=== PATIENT | male | born 1955 | race African-American/Black ===

== ENCOUNTER 2017-01-06 16:23 | Emergency (ER) | payer MEDICARE, MEDICAID ==
[~2017-01-06] VITALS: Ht 177.8 cm; Wt 106.6 kg
[~2017-01-06 16:23] MED LIST: ALBU8.5H6 IH; CYCL10TA2 PO; LISI1TAB5 PO; OXYC1TAB9 PO
[2017-01-06 16:58] VITALS: BP 126/72
[2017-01-06] MEDS ORDERED: CYCL10TA2 PO (17:18)
[2017-01-06] MEDS ORDERED: PRED50TA PO (17:18)
[2017-01-06] MEDS ORDERED: PROAIR RESPICL90 MCG IH (17:18)
[2017-01-06] MEDS ORDERED: HYDR115S2 PO (17:18)
--- NOTE | 2017-01-06 17:18 | PHYS DOC ---
Past Medical History Past Medical History: Asthma, Hypertension Additional Past Medical Histor: herniated disc in back, Past Surgical History: Other Additional Past Surgical Histo: L shoulder, R hand, Rshoulder, R knee frx repairs Alcohol Use: None Drug Use: None Adult General Chief Complaint Chief Complaint: BACK PAIN - NO INJURY [facility] HPI Patient is a 61 year old male with history of hypertension and asthma who presents today with mild bilateral low back pain that began 4 days ago after he twisted his back carrying a 7 month old in a car seat. Patient denies any pain radiating to bilateral lower extremities. Denies any loss of bowel bladder function. Denies any numbness or tingling to bilateral lower extremities. He states he has tried [id number] medications with no relief. He is also complaining of a productive cough for 4 days. Denies any fever. He states he is currently a smoker. Review of Systems Review of Systems Constitutional: Denies fever or chills [] Eyes: Denies change in visual acuity, redness, or eye pain [] HENT: Denies nasal congestion or sore throat [] Respiratory: Productive cough Cardiovascular: No additional information not addressed in HPI [] GI: Denies abdominal pain, nausea, vomiting, bloody stools or diarrhea [] : Denies dysuria or hematuria [] Musculoskeletal: Bilateral low back pain Integument: Denies rash or skin lesions [] Neurologic: Denies headache, focal weakness or sensory changes [] Endocrine: Denies polyuria or polydipsia [] Allergies Allergies Allergies Coded Allergies Type Severity Reaction Last Updated Verified Iodinated Contrast Media - IV Dye Allergy Intermediate Hives 05/31/15 Yes Physical Exam Physical Exam Constitutional: Well developed, well nourished, no acute distress, non-toxic appearance. [] HENT: Normocephalic, atraumatic, bilateral external ears normal, oropharynx moist, no oral exudates, nose normal. [] Eyes: PERRLA, EOMI, conjunctiva normal, no discharge. [] Neck: Normal range of motion, no tenderness, supple, no stridor. [] Cardiovascular:Heart rate regular rhythm, no murmur [] Lungs & Thorax: Bilateral breath sounds clear to auscultation [] Abdomen: Bowel sounds normal, soft, no tenderness, no masses, no pulsatile masses. [] Skin: Warm, dry, no erythema, no rash. [] Back: Diffuse paraspinal muscle tenderness to the lumbar region, no midline tenderness, no CVA tenderness. [] Extremities: No tenderness, no cyanosis, no clubbing, ROM intact, no edema. [] Neurologic: Alert and oriented X 3, normal motor function, normal sensory function, no focal deficits noted. [] Psychologic: Affect normal, judgement normal, mood normal. [] Current Patient Data Vital Signs Vital Signs Date Time Temp Pulse Resp B/P Pulse Ox O2 Delivery O2 Flow Rate FiO2 01/06/17 16:58 98.8 95 22 126/72 97 Room Air 98.8 EKG EKG [] Radiology/Procedures Radiology/Procedures [] Course & Med Decision Making Course & Med Decision Making Pertinent Labs and Imaging studies reviewed. (See chart for details) Patient is in the ED with acute bronchitis and lumbar strain. We talked about the need of smoking cessation. Discharged with prednisone, albuterol inhaler, muscle relaxers, and cough medicine. Follow-up with PCP in one week. Dragon Disclaimer Dragon Disclaimer This electronic medical record was generated, in whole or in part, using a voice recognition dictation system. Departure Departure Impression: Primary Impression: Acute bronchitis Additional Impressions: Lumbosacral strain Smoking addiction Disposition: 01 HOME, SELF-CARE Condition: STABLE Referrals: JULIET TIMMONS MD (PCP) Follow-up with your doctor in one week Patient Instructions: Acute Bronchitis, Lumbosacral Strain, Smoking Cessation Additional Instructions: You were seen with symptoms consistent with viral bronchitis. You also have lumbar strain. Please consider smoking cessation. Avoid lifting anything greater than a gallon of milk for week. Apply heat or ice to the affected part of your back. Take the prescribed medicines as ordered. Come back to the ED if symptoms worsen. Scripts Hydrocodone/Chlorphen Polis (Tussionex Pennkinetic Susp)480 Ml Judit.er.12h5 Ml PO BID #50 ML Prov:GILALILIAN CARDIAC MONITOR 01/06/17 Albuterol Sulfate (Proair Respiclick)90 Mcg Aer.pow.ba1 Puff IH PRN Q6HRS PRN SHORTNESS OF BREATH #1 INHALER Prov:MUTUNGALILIAN CARDIAC MONITOR 01/06/17 Prednisone 50 Mg Tablet1 Tab PO DAILY #5 TAB Prov:MUTUNGA,LILIAN CARDIAC MONITOR 01/06/17 Cyclobenzaprine Hcl 10 Mg Tablet1 Tab PO TID #30 TAB Prov:LILIAN DYER APRN 01/06/17 Problem Qualifiers Primary Impression: Acute bronchitis Bronchitis organism: unspecified organism Qualified Code: J20.9 - Acute bronchitis, unspecified Additional Impressions: Lumbosacral strain Encounter type: initial encounter Qualified Code: S39.012A - Strain of muscle, fascia and tendon of lower back, initial encounter LILIAN DYER APRN Jan 06, 2017 17:18
== END 2017-01-06 17:21 | disposition home or self-care (01) ==
LOC: ER 16:23
DX: S39.012A Strain of muscle, fascia and tendon of lower back, initial encounter (principal); J20.9 Acute bronchitis, unspecified; J45.909 Unspecified asthma, uncomplicated; I10 Essential (primary) hypertension; M19.90 Unspecified osteoarthritis, unspecified site; Z91.041 Radiographic dye allergy status; F17.200 Nicotine dependence, unspecified, uncomplicated; X50.0XXA Overexertion from strenuous movement or load, initial encounter; Y93.89 Activity, other specified; Y99.8 Other external cause status; Y92.89 Other specified places as the place of occurrence of the external cause
CPT/HCPCS: 99283

== ENCOUNTER 2017-05-11 17:48 | Emergency (ER) | payer MEDICARE, MEDICAID ==
[~2017-05-11] VITALS: Ht 177.8 cm; Wt 102.1 kg
[~2017-05-11 17:48] MED LIST changes: +HYDR115S2 PO; +PRED50TA PO; +PROAIR RESPICL90 MCG IH
[2017-05-11 18:06] VITALS: BP 153/81
[2017-05-11] MEDS ORDERED: AMOX500C PO (18:22)
--- NOTE | 2017-05-11 18:22 | PHYS DOC ---
Past Medical History Past Medical History: Asthma, COPD, Hypertension Additional Past Medical Histor: herniated disc in back, Past Surgical History: Other Additional Past Surgical Histo: L shoulder, R hand, Rshoulder, R knee fx repairs Alcohol Use: None Drug Use: None Adult General Chief Complaint Chief Complaint: DENTAL PROBLEM HPI HPI Patient is a 61 year old presents to the emergency department stating that he was eating pizza last night when he broke his front 2 lower teeth. Patient states that he goes to the dental school in which she will probably not be able to get in to see them until after Saturday. Patient states he believes that he probably swallowed his teeth that broke off. He states that he is having increased pain. Denies any fever, chills or any nausea vomiting. Review of Systems Review of Systems Constitutional: Denies fever or chills [] Eyes: Denies change in visual acuity, redness, or eye pain [] HENT: Denies nasal congestion or sore throat. Complaint of frontal lower dental pain and discomfort, fractured teeth [] Respiratory: Denies cough or shortness of breath [] Cardiovascular: No additional information not addressed in HPI [] GI: Denies abdominal pain, nausea, vomiting, bloody stools or diarrhea [] : Denies dysuria or hematuria [] Musculoskeletal: Denies back pain or joint pain [] Integument: Denies rash or skin lesions [] Neurologic: Denies headache, focal weakness or sensory changes [] Endocrine: Denies polyuria or polydipsia [] Allergies Allergies Allergies Coded Allergies Type Severity Reaction Last Updated Verified Iodinated Contrast Media - IV Dye Allergy Intermediate Hives 05/31/15 Yes Physical Exam Physical Exam Constitutional: Well developed, well nourished, no acute distress, non-toxic appearance. [] HENT: Normocephalic, atraumatic, bilateral external ears normal, oropharynx moist, no oral exudates, nose normal. Patient with frontal lower teeth to that appear to be broken off and darkened at the gumline. The gumline appears to be red swollen and tender. Eyes: PERRLA, EOMI, conjunctiva normal, no discharge. [] Neck: Normal range of motion, no tenderness, supple, no stridor. [] Cardiovascular:Heart rate regular rhythm, no murmur [] Lungs & Thorax: Bilateral breath sounds clear to auscultation [] Skin: Warm, dry, no erythema, no rash. [] Back: No tenderness Extremities: No tenderness, no cyanosis, no clubbing, ROM intact, no edema. [] Neurologic: Alert and oriented X 3, normal motor function, normal sensory function, no focal deficits noted. [] Psychologic: Affect normal, judgement normal, mood normal. [] Current Patient Data Vital Signs Vital Signs Date Time Temp Pulse Resp B/P (MAP) Pulse Ox O2 Delivery O2 Flow Rate FiO2 05/11/17 18:06 99.1 84 18 97 Room Air 99.1 EKG EKG [] Radiology/Procedures Radiology/Procedures [] Course & Med Decision Making Course & Med Decision Making Pertinent Labs and Imaging studies reviewed. (See chart for details) Patient was recommended to use dental wax [id number] to place over the teeth. Patient currently takes oxycodone at home for pain and discomfort he can continue this as well. He'll be placed on amoxicillin 1 tablet 4 times a day for the next 10 days. Recommended that he call and get in with the dental school for further evaluation of his dental pain and discomfort. Patient was provided with signs and symptoms to return back to the emergency department. Patient agrees with discharge instructions, treatment regimens and follow-up recommendations. All questions and concerns was answered at patient's bedside. [] Dragon Disclaimer Dragon Disclaimer This electronic medical record was generated, in whole or in part, using a voice recognition dictation system. Departure Departure Impression: Primary Impression: Pain, dental Additional Impression: Dental abscess Disposition: 01 HOME, SELF-CARE Condition: STABLE Referrals: JULIET TIMMONS MD (PCP) Patient Instructions: Dental Abscess Additional Instructions: Activity as tolerated. Ibuprofen for pain and discomfort where he may also use oxycodone you have at home. Warm salt water mouth rinses 4 times a day. Antibiotic as prescribed. You may purchase dental wax [id number] to place over the teeth area to help with the pain and discomfort. Follow-up with your dentist within the next week. Return back to emergency prior for signs and symptoms of become worse. Scripts Amoxicillin (AMOXICILLIN) 500 Mg Capsule 1 CAP PO QID, #40 CAP Prov: DAVE CONTRERAS APRN 05/11/17 Problem Qualifiers DAVE CONTRERAS APRN May 11, 2017 18:22
== END 2017-05-11 18:25 | disposition home or self-care (01) ==
LOC: ER 17:48
DX: K04.7 Periapical abscess without sinus (principal); I10 Essential (primary) hypertension; J44.9 Chronic obstructive pulmonary disease, unspecified
CPT/HCPCS: 99283

== ENCOUNTER 2018-06-13 09:09 | Inpatient (IN) | payer OTHER ==
[~2018-06-13] VITALS: Ht 177.8 cm; Wt 98.2 kg
[~2018-06-13 09:09] MED LIST changes: +AMOX500C PO; +OXYC-411 PO; -OXYC1TAB9 PO; +cloNIDine TTS-1 1 PATCH PATCH.TDWK TD ONE
[2018-06-13] MEDS ORDERED: ONDANSETRON PF 4 MG/2 ML VIAL. IV ONE ×2 (09:30→10:15)
[2018-06-13] MEDS ORDERED: HALOPERIDOL LACTATE 5 MG/ML VIAL. IVP ONE (09:30)
[2018-06-13] MEDS ORDERED: IV NORMAL SALINE 1000ML BAG 1,000 ML IV ONE ×2 (09:30→12:00)
--- NOTE | 2018-06-13 09:44 | EKG ---
[facility] [address] [place] [address] Test Date: 2018-06-13 Test Time: 09:31:42 Pat Name: JAIRON BURNHAM Department: Room: Gender: M Digital Marketer: : 1955 Requested By: CARLOS CASH Order Number: [id number] Reading MD: Daryl Rebolledo Measurements Intervals Notus Rate: 66 P: 54 NM: 168 QRS: 32 QRSD: 92 T: -7 QT: 390 QTc: 414 Interpretive Statements SINUS RHYTHM QRS(T) CONTOUR ABNORMALITY CANNOT RULE OUT ANTEROSEPTAL MYOCARDIAL DAMAGE T ABNORMALITY IN INFERIOR LEADS ABNORMAL ECG Electronically Signed On 06-16-2018 12:17:16 CDT by Daryl Rebolledo
[2018-06-13 09:51] LABS: BASO # 0.1 x10^3/uL (0.0-0.2); BASO % 1 % (0-3); EOS # 0.7 x10^3/uL (0.0-0.7); EOS % 9 % (0-3); HEMATOCRIT 42.5 % (39.0-53.0); HEMOGLOBIN 14.4 g/dL (13.0-17.5); LYMPH # 2.6 x10^3/uL (1.0-4.8); LYMPH % 31 % (24-48); MEAN CORPUSCULAR HEMOGLOBIN 28 pg (25-35); MEAN CORPUSCULAR HGB CONC 34 g/dL (31-37); MEAN CORPUSCULAR VOLUME 82 fL (79-100); MONO # 0.8 x10^3/uL (0.0-1.1); MONO % 9 % (0-9); NEUT # 4.4 x10^3uL (1.8-7.7); NEUT % 51 % (31-73); PLATELET COUNT 352 x10^3/uL (140-400); RED BLOOD COUNT 5.21 x10^6/uL (4.30-5.70); RED CELL DISTRIBUTION WIDTH 17.8 % (11.5-14.5); WHITE BLOOD COUNT 8.6 x10^3/uL (4.0-11.0)
[2018-06-13 10:04] LABS: CALCIUM 10.3 mg/dL (8.5-10.1); CREATININE 1.3 mg/dL (0.7-1.3); GFR 67.7; POTASSIUM 3.7 mmol/L (3.5-5.1)
[2018-06-13 10:09] LABS: ALBUMIN 3.4 g/dL (3.4-5.0); ALBUMIN/GLOBULIN RATIO 0.7 (1.0-1.7); TOTAL BILIRUBIN 0.5 mg/dL (0.2-1.0); TOTAL PROTEIN 8.6 g/dL (6.4-8.2)
[2018-06-13] MEDS ORDERED: fentaNYL PF VIAL 100 MCG/2 ML VIAL IV ONE (10:15)
[2018-06-13] MEDS: IV NORMAL SALINE 1000ML BAG 1,000 ML IV SCH ×2 (10:51→18:51)
--- NOTE | 2018-06-13 10:51 | PHYS DOC ---
Past Medical History Past Medical History: Asthma, COPD, Hypertension Additional Past Medical Histor: herniated disc in back, Past Surgical History: Other Additional Past Surgical Histo: L shoulder, R hand, Rshoulder, R knee fx repairs Alcohol Use: None Drug Use: None Adult General Chief Complaint Chief Complaint: WITHDRAWL HPI HPI Patient is a 62 year old AA male resents with abdominal pain with nausea vomiting, increased agitation starting today after running out of oxycodone yesterday. Patient states he takes 10 mg of oxycodone 8 times daily and ran out early prior to his refill 3 days from now. Has also had urinary incontinence. No fevers chills. No chest pain. Patient arrives by EMS.[] Review of Systems Review of Systems ROS as per HPI All other systems were reviewed and found to be within normal limits, except as documented in this note. Current Medications Current Medications Current Medications Medications (Trade) Dose Ordered Sig/Tyrone Start Time Stop Time Status Last Admin Dose Admin Clonidine HCl (Catapres Tts-1) 1 patch 1X ONCE 06/13/18 09:00 06/13/18 09:23 DC 06/13/18 09:52 1 PATCH Fentanyl Citrate (Fentanyl 2ml Vial) 50 mcg 1X ONCE 06/13/18 10:15 06/13/18 10:16 DC Haloperidol Lactate (Haldol Inj) 1.25 mg 1X ONCE 06/13/18 09:30 06/13/18 09:31 DC 06/13/18 09:52 1.25 MG Ondansetron HCl (Zofran) 4 mg 1X ONCE 06/13/18 10:15 06/13/18 10:16 DC Sodium Chloride 1,000 ml @ 1,000 mls/hr 1X ONCE 06/13/18 09:30 06/13/18 10:29 06/13/18 09:51 1,000 MLS/HR Allergies Allergies Allergies Coded Allergies Type Severity Reaction Last Updated Verified Iodinated Contrast Media - IV Dye Allergy Intermediate Hives 05/31/15 Yes Physical Exam Physical Exam Constitutional: Well developed, mild agitation. Covered in vomit.. [] HENT: Normocephalic, atraumatic, bilateral external ears normal, oropharynx moist, no oral exudates, nose normal. [] Eyes: PERRLA, EOMI, conjunctiva normal, no discharge. [] Neck: Normal range of motion, no tenderness, supple, no stridor. [] Cardiovascular: Tachycardia[] Lungs & Thorax: Bilateral breath sounds clear to auscultation [] Abdomen: Bowel sounds normal, soft, is tenderness,. [] Skin: Warm, dry, no erythema, no rash. [] Back: No tenderness, no CVA tenderness. [] Extremities: No tenderness, no cyanosis, no clubbing, ROM intact, no edema. [] Neurologic: Alert and oriented X 3, normal motor function, normal sensory function, no focal deficits noted. [] Psychologic: Affect, anxious. [] Current Patient Data Vital Signs Vital Signs Date Time Temp Pulse Resp B/P (MAP) Pulse Ox O2 Delivery O2 Flow Rate FiO2 06/13/18 09:29 99.2 69 20 165/71 (102) 100 Room Air 99.2 Lab Values Laboratory Tests Test 06/13/18 09:42 White Blood Count 8.6 x10^3/uL (4.0-11.0) Red Blood Count 5.21 x10^6/uL (4.30-5.70) Hemoglobin 14.4 g/dL (13.0-17.5) Hematocrit 42.5 % (39.0-53.0) Mean Corpuscular Volume 82 fL (79-100) Mean Corpuscular Hemoglobin 28 pg (25-35) Mean Corpuscular Hemoglobin Concent 34 g/dL (31-37) Red Cell Distribution Width 17.8 % (11.5-14.5) H Platelet Count 352 x10^3/uL (140-400) Neutrophils (%) (Auto) 51 % (31-73) Lymphocytes (%) (Auto) 31 % (24-48) Monocytes (%) (Auto) 9 % (0-9) Eosinophils (%) (Auto) 9 % (0-3) H Basophils (%) (Auto) 1 % (0-3) Neutrophils # (Auto) 4.4 x10^3uL (1.8-7.7) Lymphocytes # (Auto) 2.6 x10^3/uL (1.0-4.8) Monocytes # (Auto) 0.8 x10^3/uL (0.0-1.1) Eosinophils # (Auto) 0.7 x10^3/uL (0.0-0.7) Basophils # (Auto) 0.1 x10^3/uL (0.0-0.2) Sodium Level 140 mmol/L (136-145) Potassium Level 3.7 mmol/L (3.5-5.1) Chloride Level 102 mmol/L (98-107) Carbon Dioxide Level 22 mmol/L (21-32) Anion Gap 16 (6-14) H Blood Urea Nitrogen 23 mg/dL (8-26) Creatinine 1.3 mg/dL (0.7-1.3) Estimated GFR (Cockcroft-Gault) 67.7 BUN/Creatinine Ratio 18 (6-20) Glucose Level 145 mg/dL (70-99) H Calcium Level 10.3 mg/dL (8.5-10.1) H Total Bilirubin 0.5 mg/dL (0.2-1.0) Aspartate Amino Transferase (AST) 31 U/L (15-37) Alanine Aminotransferase (ALT) 37 U/L (16-63) Alkaline Phosphatase 122 U/L (46-116) H Troponin I Quantitative < 0.017 ng/mL (0.000-0.055) Total Protein 8.6 g/dL (6.4-8.2) H Albumin 3.4 g/dL (3.4-5.0) Albumin/Globulin Ratio 0.7 (1.0-1.7) L Lipase 121 U/L (73-393) Laboratory Tests 06/13/18 09:42 Laboratory Tests 06/13/18 09:42 EKG EKG [EKG: Reviewed] Radiology/Procedures Radiology/Procedures [] Course & Med Decision Making Course & Med Decision Making Pertinent Labs and Imaging studies reviewed. (See chart for details) [Patient noted to have short a run of V. tach of 10-15 beats on monitor. Suspect symptoms are secondary to narcotic withdrawal. IV fluids, aniti-emetics given. Patient also redosed with fentanyl and clonidine patch for withdrawal symptoms. Will to admit, cardiology consulted.] Dragon Disclaimer Dragon Disclaimer This electronic medical record was generated, in whole or in part, using a voice recognition dictation system. Departure Departure Impression: Primary Impression: Non-sustained ventricular tachycardia Additional Impression: Acute narcotic withdrawal with delirium Disposition: ADMITTED INPATIENT Admitting Physician: Delphine Haskins Condition: STABLE Referrals: JUILET TIMMONS MD (PCP) Problem Qualifiers CARLOS CASH DO Jun 13, 2018 10:51
[2018-06-13] MEDS ORDERED: ONDANSETRON PF 4 MG/2 ML VIAL. IV PRN ×2 (11:00→12:45)
[2018-06-13] MEDS: MORPHINE SULFATE 2 MG/ML VIAL. IV PRN ×2 (11:08→17:47)
--- NOTE | 2018-06-13 11:17 | PDOC2 ---
GISSELLE NATHAN CARDIOPULMONARY TECHNOLOGIST 06/13/18 1117: CARDIAC CONSULT DATE OF CONSULT Date of Consult DATE: 06/13/18 TIME: 11:11 REASON FOR CONSULT Reason for Consult: NSVT REFERRING PHYSICIAN Referring Physician: Damien SOURCE Source: Chart review, Patient HISTORY OF PRESENT ILLNESS HISTORY OF PRESENT ILLNESS This is a 62 yo AA male admitted for complains of confusion, vomiting and diarrhea. Per staff the called the EMS. Pt is drowsy but arousable during our conversation. Pt has chronic low back pain and takes at least 10 percocets per day and ran out yesterday morning. No family is available for further details. He has been noted to being restless, vomited at least 3x so far this morning and had 5x at least watery diarrhea. He has been incontinent of urine but no notation of seizure episode. Admits tobaccoism and marijuana use but denies any cocaine or any other recreational drugs or ETOH use. Upon admission he has been hydrated and has been noted with Opioid withdrawal. In addition he has been noted with brief slow NSVT, asymptomatic. No CP, SOA. BP is stable but elevated. No prior hx of CAD, or arrhythmias. He has been skipping his BP meds and last dose was the day before. PAST MEDICAL HISTORY Cardiovascular: HTN Pulmonary: COPD CENTRAL NERVOUS SYSTEM: Other (No pertinent history) Heme/Onc: No pertinent hx Hepatobiliary: No pertinent hx Psych: Other (opioid dependence) Musculoskeletal: low back pain, Osteoarthritis Rheumatologic: No pertinent hx Infectious disease: No pertinent hx ENT: No pertinent hx Renal/: No pertinent hx Endocrine: No pertinent hx Dermatology: No pertinent hx PAST SURGICAL HISTORY Past Surgical History: Other (right elbow surgery) FAMILY HISTORY Family History noncontributory to CV SOCIAL HISTORY Smoke: <1 pack per day ALCOHOL: none Drugs: Marijuana Lives: with Family CURRENT MEDICATIONS CURRENT MEDICATIONS Current Medications Medications (Trade) Dose Ordered Sig/Tyrone Route PRN Reason Start Time Stop Time Status Last Admin Dose Admin Sodium Chloride 1,000 ml @ 1,000 mls/hr 1X ONCE IV 06/13/18 09:30 06/13/18 10:29 DC 06/13/18 09:51 Ondansetron HCl (Zofran) 4 mg 1X ONCE IV 06/13/18 09:30 06/13/18 09:31 DC 06/13/18 09:51 Haloperidol Lactate (Haldol Inj) 1.25 mg 1X ONCE IVP 06/13/18 09:30 06/13/18 09:31 DC 06/13/18 09:52 Clonidine HCl (Catapres Tts-1) 1 patch 1X ONCE TD 06/13/18 09:00 06/13/18 09:23 DC 06/13/18 09:52 Fentanyl Citrate (Fentanyl 2ml Vial) 50 mcg 1X ONCE IV 06/13/18 10:15 06/13/18 10:16 DC 06/13/18 10:26 Ondansetron HCl (Zofran) 4 mg 1X ONCE IV 06/13/18 10:15 06/13/18 10:16 DC 06/13/18 10:26 Morphine Sulfate (Morphine Sulfate) 2 mg PRN Q4HRS PRN IV MODERATE PAIN 06/13/18 11:00 06/13/18 11:08 ALLERGIES ALLERGIES: Coded Allergies: Iodinated Contrast- Oral and IV Dye (Verified Allergy, Intermediate, Hives , 05/31/15) ROS Review of System limited, see HPI PHYSICAL EXAM General: Oriented X3, Cooperative, No acute distress, Other (drowsy) HEENT: Atraumatic, Mucous membr. moist/pink, Other (periodontal disease) Lungs: Clear to auscultation, Normal air movement Heart: Regular rate, Normal S1, Normal S2, Other (3/6 systolic murmur to LLS border) Abdomen: Soft, No tenderness, Other (truncal obesity) Extremities: No cyanosis, No edema Skin: No breakdown, No significant lesion Psych/Mental Status: Other (drowsy) MUSCULOSKELETAL: Osteoarthritic changes both hands VITALS VITALS Vital Signs Date Time Temp Pulse Resp B/P (MAP) Pulse Ox O2 Delivery O2 Flow Rate FiO2 06/13/18 10:19 66 22 165/82 (109) 98 Room Air 06/13/18 09:29 99.2 99.2 LABS Lab: Laboratory Tests Test 06/13/18 09:42 White Blood Count 8.6 x10^3/uL (4.0-11.0) Red Blood Count 5.21 x10^6/uL (4.30-5.70) Hemoglobin 14.4 g/dL (13.0-17.5) Hematocrit 42.5 % (39.0-53.0) Mean Corpuscular Volume 82 fL (79-100) Mean Corpuscular Hemoglobin 28 pg (25-35) Mean Corpuscular Hemoglobin Concent 34 g/dL (31-37) Red Cell Distribution Width 17.8 % (11.5-14.5) Platelet Count 352 x10^3/uL (140-400) Neutrophils (%) (Auto) 51 % (31-73) Lymphocytes (%) (Auto) 31 % (24-48) Monocytes (%) (Auto) 9 % (0-9) Eosinophils (%) (Auto) 9 % (0-3) Basophils (%) (Auto) 1 % (0-3) Neutrophils # (Auto) 4.4 x10^3uL (1.8-7.7) Lymphocytes # (Auto) 2.6 x10^3/uL (1.0-4.8) Monocytes # (Auto) 0.8 x10^3/uL (0.0-1.1) Eosinophils # (Auto) 0.7 x10^3/uL (0.0-0.7) Basophils # (Auto) 0.1 x10^3/uL (0.0-0.2) Sodium Level 140 mmol/L (136-145) Potassium Level 3.7 mmol/L (3.5-5.1) Chloride Level 102 mmol/L (98-107) Carbon Dioxide Level 22 mmol/L (21-32) Anion Gap 16 (6-14) Blood Urea Nitrogen 23 mg/dL (8-26) Creatinine 1.3 mg/dL (0.7-1.3) Estimated GFR (Cockcroft-Gault) 67.7 BUN/Creatinine Ratio 18 (6-20) Glucose Level 145 mg/dL (70-99) Calcium Level 10.3 mg/dL (8.5-10.1) Total Bilirubin 0.5 mg/dL (0.2-1.0) Aspartate Amino Transf (AST/SGOT) 31 U/L (15-37) Alanine Aminotransferase (ALT/SGPT) 37 U/L (16-63) Alkaline Phosphatase 122 U/L (46-116) Troponin I Quantitative < 0.017 ng/mL (0.000-0.055) Total Protein 8.6 g/dL (6.4-8.2) Albumin 3.4 g/dL (3.4-5.0) Albumin/Globulin Ratio 0.7 (1.0-1.7) Lipase 121 U/L (73-393) ASSESSMENT/PLAN ASSESSMENT/PLAN 1. Opioids withdrawal with chronic back pain 2. Arrhythmia: slow NSVT, likely from above and F&E shifts given his vomiting and diarrhea. QTc 415 3. Metabolic/toxic encephalopathy 4. HTN: labile 5. Anion gap metabolic acidosis 6. Tobaccoism 7. Marijuana use. Recommendations 1. Check Mg and replace as warranted, IV hydrate. Opioid withdrawal regimen per PCP 2. UDS, TSH, TTE today. 3. Marijuana and smoking cessation 4. Continue with IV hydration. Agree with transdermal clonidine. Vasotec IV PRN. YASSINE RODRIGUEZ MD 06/13/18 [id number]: CARDIAC CONSULT ASSESSMENT/PLAN ASSESSMENT/PLAN Patient seen and examined. Agree with INDUSTRIAL HIRE SALES ASSISTANT's assessment and plan. Rule out hypomagnesemia as a cause of NSVT and replace as needed Check 2-D echo to assess LV systolic function and rule out wall motion abnormalities Ischemic workup could be considered as an outpatient Thank you for your consultation GISSELLE NATHAN APRN Jun 13, 2018 11:17 YASSINE RODRIGUEZ MD Jun 13, 2018 13:56
--- NOTE | 2018-06-13 11:57 | RAD ---
CT HEAD WO CONTRAST Indication: altered mental status, withdraw
no priors Exposure: One or more of the following individualized dose reduction techniques were utilized for this examination: 1. Automated exposure control 2. Adjustment of the mA and/or kV according to patient size 3. Use of iterative reconstruction technique. Comparison: None are available. Contrast: None FINDINGS: Posterior fossa is unremarkable. No evidence of acute intracranial hemorrhage or abnormal extra-axial fluid collection. No evidence of mass effect or midline shift. Low-density in the white matter bilaterally, a nonspecific finding, but which is commonly due to chronic small vessel ischemic disease in a patient of this age. Prominence of ventricles and sulci, compatible with involutional change or atrophy. Intracranial arterial calcifications are identified. Visualized orbits are unremarkable. Moderate to severe tissue in the partially seen right maxillary sinus. Mild ethmoid sinus mucosal tissue. No acute calvarial abnormality. Impression: 1. No evidence of acute intracranial hemorrhage or mass effect. 2. Paranasal sinus disease particularly the right maxillary sinus. Electronically signed by: William Butt MD (06/13/2018 11:54 AM) [id number]
[2018-06-13] MEDS ORDERED: ENALAPRILAT 1.25 MG/ML VIAL. IVP PRN (12:00)
[2018-06-13 12:16] VITALS: BP 119/71
[2018-06-13] MEDS ORDERED: ACETAMINOPHEN 500 MG TABLET PO PRN (12:30)
--- NOTE | 2018-06-13 12:38 | PDOC1 ---
History and Physical Date of Admission Date of Admission DATE: 06/13/18 TIME: 12:32 Identification/Chief Complaint Chief Complaint abd pain, vomiting Source Source: Caregiver, Chart review, Patient History of Present Illness History of Present Illness 62-year-old -Citizen Of [place] male, history of chronic oxycodone use because of chronic back pain, he takes 80 mg in a day, comes in because of emesis abdominal pain and diarrhea. Seems to be withdrawing from narcotic. A little bit hypotensive got boluses at the emergency room and started on 1 25 mL an hour. elevated anion gap and elevated calcium at 10.5. Bucket at bedside. Still feels unwell. No family at bedside. Got a dose of fentanyl. We will admit , cards was consulted because went to 15-20 nonsustained runs of V. tach at ER, patient asymptomatic. No known coronary artery disease or heart issues. Echocardiogram ordered by cardiology Discussed with ER Mahsa, seen at ER emergency room Past Medical History Cardiovascular: HTN Pulmonary: COPD CENTRAL NERVOUS SYSTEM: Other (No pertinent history) Heme/Onc: No pertinent hx Hepatobiliary: No pertinent hx Psych: Other (opioid dependence) Musculoskeletal: low back pain, Osteoarthritis Rheumatologic: No pertinent hx Infectious disease: No pertinent hx ENT: No pertinent hx Renal/: No pertinent hx Endocrine: No pertinent hx Dermatology: No pertinent hx Past Surgical History Past Surgical History: Other (right elbow surgery) Family History Family History: No Significant Social History Smoke: <1 pack per day ALCOHOL: none Drugs: Marijuana Current Problem List Problem List Problems Medical Problems: (1) Acute narcotic withdrawal with delirium Status: Acute (2) Non-sustained ventricular tachycardia Status: Acute Current Medications Current Medications Current Medications Sodium Chloride 1,000 ml @ 1,000 mls/hr 1X ONCE IV Last administered on at 09:51; Start 06/13/18 at 09:30; Stop 06/13/18 at 10:29; Status DC Ondansetron HCl (Zofran) 4 mg 1X ONCE IV Last administered on 06/13/18at 09:51 ; Start 06/13/18 at 09:30; Stop 06/13/18 at 09:31; Status DC Haloperidol Lactate (Haldol Inj) 1.25 mg 1X ONCE IVP Last administered on 06/13at 09:52; Start 06/13/18 at 09:30; Stop 06/13/18 at 09:31; Status DC Clonidine HCl (Catapres Tts-1) 1 patch 1X ONCE TD Last administered on at 09:52; Start 06/13/18 at 09:00; Stop 06/13/18 at 09:23; Status DC Fentanyl Citrate (Fentanyl 2ml Vial) 50 mcg 1X ONCE IV Last administered on at 10:26; Start 06/13/18 at 10:15; Stop 06/13/18 at 10:16; Status DC Ondansetron HCl (Zofran) 4 mg 1X ONCE IV Last administered on 06/13/18at 10:26 ; Start 06/13/18 at 10:15; Stop 06/13/18 at 10:16; Status DC Ondansetron HCl (Zofran) 4 mg PRN Q8HRS PRN IV NAUSEA/VOMITING; Start 06/13/18 at 11:00; Stop 06/13/18 at 12:32; Status DC Morphine Sulfate (Morphine Sulfate) 2 mg PRN Q4HRS PRN IV MODERATE PAIN Last administered on 06/13/18at 11:08; Start 06/13/18 at 11:00 Sodium Chloride 1,000 ml @ 125 mls/hr Q8H IV ; Start 06/13/18 at 10:51; Stop at 10:50 Enalaprilat (Vasotec Inj) 1.25 mg PRN Q6HRS PRN IVP ELEVATED BP, SEE COMMENTS; Start 06/13/18 at 12:00 Sodium Chloride 1,000 ml @ 75 mls/hr 1X ONCE IV ; Start 06/13/18 at 12:00; Stop 06/14/18 at 01:19 Ondansetron HCl (Zofran) 4 mg PRN Q6HRS PRN IV NAUSEA/VOMITING; Start 06/13/18 at 12:45; Status UNV Acetaminophen (Tylenol) 500 mg PRN Q6HRS PRN PO MILD PAIN / TEMP; Start at 12:30; Status UNV Acetaminophen/ Codeine Phosphate (Tylenol #3) 1 tab PRN Q6HRS PRN PO PAIN; Start 06/13/18 at 12:30; Status UNV Lorazepam (Ativan) 2 mg PRN Q4HRS PRN IV ANXIETY / AGITATION; Start 06/13/18 at 12:30; Status UNV Zolpidem Tartrate (Ambien) 5 mg PRN QHS PRN PO INSOMNIA; Start 06/13/18 at 12: 30; Status UNV Active Scripts Active Amoxicillin 500 Mg Capsule 1 Cap PO QID Tussionex Pennkinetic Susp (Hydrocodone/Chlorphen Polis) 480 Ml Judit.er.12h 5 Ml PO BID Proair Respiclick (Albuterol Sulfate) 90 Mcg Aer.pow.ba 1 Puff IH PRN Q6HRS PRN Prednisone 50 Mg Tablet 1 Tab PO DAILY Cyclobenzaprine Hcl 10 Mg Tablet 1 Tab PO TID Reported Albuterol Sulfate Hfa Inhaler (Albuterol Sulfate) 8.5 Gm Hfa.aer.ad 8.5 Gm IH Cyclobenzaprine Hcl 10 Mg Tablet 10 Mg PO Oxycodone-Acetaminophen 10-325 (Oxycodone Hcl/Acetaminophen) 1 Each Tablet 1 Each PO Lisinopril-Hctz 20-12.5 Mg Tab (Lisinopril/Hydrochlorothiazide) 1 Each Tablet 1 Each PO Allergies Allergies: Coded Allergies: Iodinated Contrast- Oral and IV Dye (Verified Allergy, Intermediate, Hives , 05/31/15) ROS Review of System limited as he still feels unwell, bucket at bedside-but as per history of present illness, the rest of ROS 14 point neg Physical Exam General: No acute distress, Other (looks weak, bucket at bedside) HEENT: PERRLA Lungs: Clear to auscultation, Normal air movement Heart: S1S2, RRR, no thrills, no rubs, no gallops, no murmurs Cardiovascular: S1, S2 Abdomen: Normal bowel sounds, Soft, No tenderness, No hepatosplenomegaly, No masses Male Genitals Exam: normal genitalia, normal prostate Rectal Exam: not examined PELVIC: Nml ext genitalia Extremities: No clubbing, No cyanosis, No edema, Normal pulses, No tenderness/ swelling Skin: No rashes, No breakdown, No significant lesion Neuro: Normal gait, Normal speech, Strength at 5/5 X4 ext, Normal tone, Sensation intact, Cranial nerves 3-12 NL, Reflexes 2+ Psych/Mental Status: Mental status NL, Mood NL Vitals Vitals Vital Signs Date Time Temp Pulse Resp B/P (MAP) Pulse Ox O2 Delivery O2 Flow Rate FiO2 06/13/18 12:16 97.7 72 20 119/71 (87) 95 Room Air 97.7 Labs Labs Laboratory Tests Test 06/13/18 09:42 White Blood Count 8.6 x10^3/uL (4.0-11.0) Red Blood Count 5.21 x10^6/uL (4.30-5.70) Hemoglobin 14.4 g/dL (13.0-17.5) Hematocrit 42.5 % (39.0-53.0) Mean Corpuscular Volume 82 fL (79-100) Mean Corpuscular Hemoglobin 28 pg (25-35) Mean Corpuscular Hemoglobin Concent 34 g/dL (31-37) Red Cell Distribution Width 17.8 % (11.5-14.5) Platelet Count 352 x10^3/uL (140-400) Neutrophils (%) (Auto) 51 % (31-73) Lymphocytes (%) (Auto) 31 % (24-48) Monocytes (%) (Auto) 9 % (0-9) Eosinophils (%) (Auto) 9 % (0-3) Basophils (%) (Auto) 1 % (0-3) Neutrophils # (Auto) 4.4 x10^3uL (1.8-7.7) Lymphocytes # (Auto) 2.6 x10^3/uL (1.0-4.8) Monocytes # (Auto) 0.8 x10^3/uL (0.0-1.1) Eosinophils # (Auto) 0.7 x10^3/uL (0.0-0.7) Basophils # (Auto) 0.1 x10^3/uL (0.0-0.2) Sodium Level 140 mmol/L (136-145) Potassium Level 3.7 mmol/L (3.5-5.1) Chloride Level 102 mmol/L (98-107) Carbon Dioxide Level 22 mmol/L (21-32) Anion Gap 16 (6-14) Blood Urea Nitrogen 23 mg/dL (8-26) Creatinine 1.3 mg/dL (0.7-1.3) Estimated GFR (Cockcroft-Gault) 67.7 BUN/Creatinine Ratio 18 (6-20) Glucose Level 145 mg/dL (70-99) Calcium Level 10.3 mg/dL (8.5-10.1) Total Bilirubin 0.5 mg/dL (0.2-1.0) Aspartate Amino Transf (AST/SGOT) 31 U/L (15-37) Alanine Aminotransferase (ALT/SGPT) 37 U/L (16-63) Alkaline Phosphatase 122 U/L (46-116) Troponin I Quantitative < 0.017 ng/mL (0.000-0.055) Total Protein 8.6 g/dL (6.4-8.2) Albumin 3.4 g/dL (3.4-5.0) Albumin/Globulin Ratio 0.7 (1.0-1.7) Lipase 121 U/L (73-393) Laboratory Tests Test 06/13/18 09:42 White Blood Count 8.6 x10^3/uL (4.0-11.0) Red Blood Count 5.21 x10^6/uL (4.30-5.70) Hemoglobin 14.4 g/dL (13.0-17.5) Hematocrit 42.5 % (39.0-53.0) Mean Corpuscular Volume 82 fL (79-100) Mean Corpuscular Hemoglobin 28 pg (25-35) Mean Corpuscular Hemoglobin Concent 34 g/dL (31-37) Red Cell Distribution Width 17.8 % (11.5-14.5) Platelet Count 352 x10^3/uL (140-400) Neutrophils (%) (Auto) 51 % (31-73) Lymphocytes (%) (Auto) 31 % (24-48) Monocytes (%) (Auto) 9 % (0-9) Eosinophils (%) (Auto) 9 % (0-3) Basophils (%) (Auto) 1 % (0-3) Neutrophils # (Auto) 4.4 x10^3uL (1.8-7.7) Lymphocytes # (Auto) 2.6 x10^3/uL (1.0-4.8) Monocytes # (Auto) 0.8 x10^3/uL (0.0-1.1) Eosinophils # (Auto) 0.7 x10^3/uL (0.0-0.7) Basophils # (Auto) 0.1 x10^3/uL (0.0-0.2) Sodium Level 140 mmol/L (136-145) Potassium Level 3.7 mmol/L (3.5-5.1) Chloride Level 102 mmol/L (98-107) Carbon Dioxide Level 22 mmol/L (21-32) Anion Gap 16 (6-14) Blood Urea Nitrogen 23 mg/dL (8-26) Creatinine 1.3 mg/dL (0.7-1.3) Estimated GFR (Cockcroft-Gault) 67.7 BUN/Creatinine Ratio 18 (6-20) Glucose Level 145 mg/dL (70-99) Calcium Level 10.3 mg/dL (8.5-10.1) Total Bilirubin 0.5 mg/dL (0.2-1.0) Aspartate Amino Transf (AST/SGOT) 31 U/L (15-37) Alanine Aminotransferase (ALT/SGPT) 37 U/L (16-63) Alkaline Phosphatase 122 U/L (46-116) Troponin I Quantitative < 0.017 ng/mL (0.000-0.055) Total Protein 8.6 g/dL (6.4-8.2) Albumin 3.4 g/dL (3.4-5.0) Albumin/Globulin Ratio 0.7 (1.0-1.7) Lipase 121 U/L (73-393) VTE Prophylaxis Ordered VTE Prophylaxis Devices: Yes VTE Pharmacological Prophylaxi: Yes Assessment/Plan Assessment/Plan ABD pain, emesis, likely narcotic withdrawal Chronic narcotic dependence/opiate tolerance secondary to chronic lumbago Nonsustained V. tach at the emergency room-15-20 beats Elevated anion gap, hypercalcemia secondary to dehydration Plan: agree with aggressive hydration, okay with IV fentanyl or morphine Resume some Percocet doses Seizure precaution in case because of narcotic withdrawal Echocardiogram per cardiology Hydrate and recheck anion gap and calcium tomorrow Supportive meds Seemingly no PT needs Okay for liquid diet then ADA T Seen at [facility] ELLIOTT MD Jun 13, 2018 12:38
[2018-06-13] MEDS ORDERED: NON FORMULARY ITEM (Albuterol Sulfate (Proair Respiclick) 1 PUFF) IH PRN (12:45)
[2018-06-13] MEDS ORDERED: LIDOCAINE (700MG/PATCH) PATCH. TD PRN (12:45)
[2018-06-13] MEDS ORDERED: ALBUTEROL SULFATE 2.5 MG/3 ML NEBU. NEB PRN (13:00)
[2018-06-13] MEDS: CYCLOBENZAPRINE 10 MG TABLET. PO SCH ×2 (13:31→21:25)
[2018-06-13] MEDS ORDERED: guaiFENesin ORAL 200 MG/10 ML LIQUID. PO PRN (14:00)
[2018-06-13] MEDS: oxyCODONE/APAP 10/325 1 TAB TABLET PO PRN ×2 (14:57→21:25)
[2018-06-13 15:00] VITALS: BP 159/58
[2018-06-13 15:28] LABS: BILIRUBIN,URINE NEGATIVE (NEG); CLARITY,URINE CLEAR; COLOR,URINE YELLOW; NITRITE,URINE NEGATIVE (NEG); PH,URINE 6.5; PROTEIN,URINE >=300 mg/dL (NEG-TRACE); UROBILINOGEN,URINE 0.2 mg/dL (0.2 mg/dL)
--- NOTE | 2018-06-13 15:35 | CARD ---
MR#: [id number] Date of Study: 06/13/2018 Ordering Physician: GISSELLE NATHAN, Referring Physician: Jonathon ROCK: Alayna Birminghamstephanienatalia APPROVED REPORT EXAM: LIMITED Two-dimensional and M-mode echocardiogram. Other Information Quality : Technically LimitedHR: 86bpm INDICATION non-compliant Patient, patient refused echocardiogram 2D DIMENSIONS RVDd2.2 (2.9-3.5cm)Left Atrium(2D)3.2 (1.6-4.0cm) IVSd0.9 (0.7-1.1cm)Aortic Root(2D)3.1 (2.0-3.7cm) LVDd5.2 (3.9-5.9cm)PWd1.2 (0.7-1.1cm) LVDs3.4 (2.5-4.0cm)FS (%) 33.7 % SV79.5 mlLVEF(%)62.1 (>50%) LEFT VENTRICLE Brief echocardiogram for LV function. Further testing apparently not possible due to patient noncompl iance. The left ventricle is normal size. There is normal left ventricular wall thickness. The left v entricular systolic function is normal and the ejection fraction is within normal range. The Ejection Fraction is 55-60%. Critical Notification Critical Value: No <Conclusion> Brief echocardiogram for LV function. Further testing apparently not possible due to patient noncompl iance. The left ventricle is normal size. The left ventricular systolic function is normal and the ejection fraction is within normal range. The Ejection Fraction is 55-60%. There is normal left ventricular wall thickness. Signed by : Timo Gandhi MD Electronically Approved : 06/13/2018 15:33:57
[2018-06-13 15:38] LABS: BARBITURATES NEG (NEG); BENZODIAZEPINES NEG (NEG); CANNABINOIDS POS (NEG); COCAINE POS (NEG); METHADONE NEG (NEG); OPIATES POS (NEG); PHENCYCLIDINE NEG (NEG)
[2018-06-13 15:43] LABS: AMPHETAMINE/METHAMPHETAMINE NEG (NEG)
[2018-06-13 15:46] LABS: BACTERIA,URINE 0 /HPF (0-FEW); WBC,URINE 0 /HPF (0-4)
[2018-06-13] MEDS: HALOPERIDOL 5 MG TABLET. PO PRN ×2 (16:07→23:27)
[2018-06-13 19:44] VITALS: BP 128/47
[2018-06-13] MEDS: ALBUTEROL SULFATE 2.5 MG/3 ML NEBU. NEB SCH (19:59)
[2018-06-13] MEDS ORDERED: ALBUTEROL SULFATE 8GM INHALER. IH SCH (21:00)
[2018-06-13] MEDS ORDERED: HYDROcodone/CHLORPHEN POLIS 5 ML SUS.ER.12H PO SCH (21:00)
[2018-06-13 23:05] VITALS: BP 172/77
[2018-06-14] MEDS: IV NORMAL SALINE 1000ML BAG 1,000 ML IV SCH (02:51)
[2018-06-14 03:13] VITALS: BP 189/99
[2018-06-14 07:00] VITALS: BP 135/71
[2018-06-14] MEDS: CYCLOBENZAPRINE 10 MG TABLET. PO SCH ×3 (08:18→20:27)
[2018-06-14] MEDS: NICOTINE 21MG PATCH. TD PRN (08:36)
[2018-06-14] MEDS: oxyCODONE/APAP 10/325 1 TAB TABLET PO PRN ×2 (08:37→22:39)
--- NOTE | 2018-06-14 11:01 | PDOC ---
PROGRESS NOTES Chief Complaint Chief Complaint admitted with Abdominal pain likely due to withdrawal feels better today , evaluated by CV continue current plan History of Present Illness History of Present Illness ABD pain, emesis, likely narcotic withdrawal Chronic narcotic dependence/opiate tolerance secondary to chronic lumbago Nonsustained V. tach at the emergency room-15-20 beats Elevated anion gap, hypercalcemia secondary to dehydration Plan: agree with aggressive hydration, okay with IV fentanyl or morphine Resume some Percocet doses Seizure precaution in case because of narcotic withdrawal Echocardiogram per cardiology Hydrate and recheck anion gap and calcium tomorrow Supportive meds PT Vitals Vitals Vital Signs Date Time Temp Pulse Resp B/P (MAP) Pulse Ox O2 Delivery O2 Flow Rate FiO2 06/14/18 08:37 95 06/14/18 07:00 97.7 92 20 135/71 (92) Room Air 97.7 Physical Exam General: Alert, Cooperative, No acute distress, Other (looks weak, bucket at bedside) Heart: Regular rate, Normal S1, Normal S2, Other (3/6 systolic murmur to LLS border) Abdomen: Normal bowel sounds, Soft, No tenderness, No hepatosplenomegaly, No masses Extremities: No clubbing, No cyanosis, No edema, Normal pulses, No tenderness/ swelling Skin: No rashes, No breakdown, No significant lesion Labs LABS Laboratory Tests Test 06/13/18 14:50 06/13/18 15:08 Clostridium difficile Toxin (PCR) Negative (Negative) Urine Collection Type Unknown Urine Color Yellow Urine Clarity Clear Urine pH 6.5 Urine Specific Thomas 1.020 Urine Protein >=300 mg/dL (NEG-TRACE) Urine Glucose (UA) Negative mg/dL (NEG) Urine Ketones (Stick) Negative mg/dL (NEG) Urine Blood Large (NEG) Urine Nitrite Negative (NEG) Urine Bilirubin Negative (NEG) Urine Urobilinogen Dipstick 0.2 mg/dL (0.2 mg/dL) Urine Leukocyte Esterase Negative (NEG) Urine RBC 6-10 /HPF (0-2) Urine WBC 0 /HPF (0-4) Urine Bacteria 0 /HPF (0-FEW) Urine Opiates Screen Pos (NEG) Urine Methadone Screen Neg (NEG) Urine Barbiturates Neg (NEG) Urine Phencyclidine Screen Neg (NEG) Urine Amphetamine/Methamphetamine Neg (NEG) Urine Benzodiazepines Screen Neg (NEG) Urine Cocaine Screen Pos (NEG) Urine Cannabinoids Screen Pos (NEG) Urine Ethyl Alcohol Neg (NEG) Assessment and Plan Assessmemt and Plan Problems Medical Problems: (1) Acute narcotic withdrawal with delirium Status: Acute (2) Non-sustained ventricular tachycardia Status: Acute Comment Review of Relevant I have reviewed the following items makayla (where applicable) has been applied. Labs Laboratory Tests Test 06/13/18 09:42 06/13/18 14:50 06/13/18 15:08 White Blood Count 8.6 x10^3/uL (4.0-11.0) Red Blood Count 5.21 x10^6/uL (4.30-5.70) Hemoglobin 14.4 g/dL (13.0-17.5) Hematocrit 42.5 % (39.0-53.0) Mean Corpuscular Volume 82 fL (79-100) Mean Corpuscular Hemoglobin 28 pg (25-35) Mean Corpuscular Hemoglobin Concent 34 g/dL (31-37) Red Cell Distribution Width 17.8 % (11.5-14.5) Platelet Count 352 x10^3/uL (140-400) Neutrophils (%) (Auto) 51 % (31-73) Lymphocytes (%) (Auto) 31 % (24-48) Monocytes (%) (Auto) 9 % (0-9) Eosinophils (%) (Auto) 9 % (0-3) Basophils (%) (Auto) 1 % (0-3) Neutrophils # (Auto) 4.4 x10^3uL (1.8-7.7) Lymphocytes # (Auto) 2.6 x10^3/uL (1.0-4.8) Monocytes # (Auto) 0.8 x10^3/uL (0.0-1.1) Eosinophils # (Auto) 0.7 x10^3/uL (0.0-0.7) Basophils # (Auto) 0.1 x10^3/uL (0.0-0.2) Sodium Level 140 mmol/L (136-145) Potassium Level 3.7 mmol/L (3.5-5.1) Chloride Level 102 mmol/L (98-107) Carbon Dioxide Level 22 mmol/L (21-32) Anion Gap 16 (6-14) Blood Urea Nitrogen 23 mg/dL (8-26) Creatinine 1.3 mg/dL (0.7-1.3) Estimated GFR (Cockcroft-Gault) 67.7 BUN/Creatinine Ratio 18 (6-20) Glucose Level 145 mg/dL (70-99) Calcium Level 10.3 mg/dL (8.5-10.1) Magnesium Level 1.9 mg/dL (1.8-2.4) Total Bilirubin 0.5 mg/dL (0.2-1.0) Aspartate Amino Transf (AST/SGOT) 31 U/L (15-37) Alanine Aminotransferase (ALT/SGPT) 37 U/L (16-63) Alkaline Phosphatase 122 U/L (46-116) Creatine Kinase 92 U/L (39-308) Troponin I Quantitative < 0.017 ng/mL (0.000-0.055) Total Protein 8.6 g/dL (6.4-8.2) Albumin 3.4 g/dL (3.4-5.0) Albumin/Globulin Ratio 0.7 (1.0-1.7) Lipase 121 U/L (73-393) Thyroid Stimulating Hormone (TSH) 0.434 uIU/mL (0.358-3.74) Clostridium difficile Toxin (PCR) Negative (Negative) Urine Collection Type Unknown Urine Color Yellow Urine Clarity Clear Urine pH 6.5 Urine Specific Thomas 1.020 Urine Protein >=300 mg/dL (NEG-TRACE) Urine Glucose (UA) Negative mg/dL (NEG) Urine Ketones (Stick) Negative mg/dL (NEG) Urine Blood Large (NEG) Urine Nitrite Negative (NEG) Urine Bilirubin Negative (NEG) Urine Urobilinogen Dipstick 0.2 mg/dL (0.2 mg/dL) Urine Leukocyte Esterase Negative (NEG) Urine RBC 6-10 /HPF (0-2) Urine WBC 0 /HPF (0-4) Urine Bacteria 0 /HPF (0-FEW) Urine Opiates Screen Pos (NEG) Urine Methadone Screen Neg (NEG) Urine Barbiturates Neg (NEG) Urine Phencyclidine Screen Neg (NEG) Urine Amphetamine/Methamphetamine Neg (NEG) Urine Benzodiazepines Screen Neg (NEG) Urine Cocaine Screen Pos (NEG) Urine Cannabinoids Screen Pos (NEG) Urine Ethyl Alcohol Neg (NEG) Laboratory Tests Test 06/13/18 14:50 9/28/18 15:08 Clostridium difficile Toxin (PCR) Negative (Negative) Urine Collection Type Unknown Urine Color Yellow Urine Clarity Clear Urine pH 6.5 Urine Specific Thomas 1.020 Urine Protein >=300 mg/dL (NEG-TRACE) Urine Glucose (UA) Negative mg/dL (NEG) Urine Ketones (Stick) Negative mg/dL (NEG) Urine Blood Large (NEG) Urine Nitrite Negative (NEG) Urine Bilirubin Negative (NEG) Urine Urobilinogen Dipstick 0.2 mg/dL (0.2 mg/dL) Urine Leukocyte Esterase Negative (NEG) Urine RBC 6-10 /HPF (0-2) Urine WBC 0 /HPF (0-4) Urine Bacteria 0 /HPF (0-FEW) Urine Opiates Screen Pos (NEG) Urine Methadone Screen Neg (NEG) Urine Barbiturates Neg (NEG) Urine Phencyclidine Screen Neg (NEG) Urine Amphetamine/Methamphetamine Neg (NEG) Urine Benzodiazepines Screen Neg (NEG) Urine Cocaine Screen Pos (NEG) Urine Cannabinoids Screen Pos (NEG) Urine Ethyl Alcohol Neg (NEG) Medications Current Medications Sodium Chloride 1,000 ml @ 1,000 mls/hr 1X ONCE IV Last administered on at 09:51; Start 06/13/18 at 09:30; Stop 06/13/18 at 10:29; Status DC Ondansetron HCl (Zofran) 4 mg 1X ONCE IV Last administered on 06/13/18at 09:51 ; Start 06/13/18 at 09:30; Stop 06/13/18 at 09:31; Status DC Haloperidol Lactate (Haldol Inj) 1.25 mg 1X ONCE IVP Last administered on 06/13at 09:52; Start 06/13/18 at 09:30; Stop 06/13/18 at 09:31; Status DC Clonidine HCl (Catapres Tts-1) 1 patch 1X ONCE TD Last administered on at 09:52; Start 06/13/18 at 09:00; Stop 06/13/18 at 09:23; Status DC Fentanyl Citrate (Fentanyl 2ml Vial) 50 mcg 1X ONCE IV Last administered on at 10:26; Start 06/13/18 at 10:15; Stop 06/13/18 at 10:16; Status DC Ondansetron HCl (Zofran) 4 mg 1X ONCE IV Last administered on 06/13/18at 10:26 ; Start 06/13/18 at 10:15; Stop 06/13/18 at 10:16; Status DC Ondansetron HCl (Zofran) 4 mg PRN Q8HRS PRN IV NAUSEA/VOMITING; Start 06/13/18 at 11:00; Stop 06/13/18 at 12:32; Status DC Morphine Sulfate (Morphine Sulfate) 2 mg PRN Q4HRS PRN IV MODERATE PAIN Last administered on 06/13/18at 17:47; Start 06/13/18 at 11:00 Sodium Chloride 1,000 ml @ 125 mls/hr Q8H IV ; Start 06/13/18 at 10:51; Stop at 10:50; Status DC Enalaprilat (Vasotec Inj) 1.25 mg PRN Q6HRS PRN IVP ELEVATED BP, SEE COMMENTS; Start 06/13/18 at 12:00 Sodium Chloride 1,000 ml @ 75 mls/hr 1X ONCE IV Last administered on at 12:00; Start 06/13/18 at 12:00; Stop 06/14/18 at 01:19; Status DC Ondansetron HCl (Zofran) 4 mg PRN Q6HRS PRN IV NAUSEA/VOMITING; Start 06/13/18 at 12:45 Acetaminophen (Tylenol) 500 mg PRN Q6HRS PRN PO MILD PAIN / TEMP; Start at 12:30 Acetaminophen/ Codeine Phosphate (Tylenol #3) 1 tab PRN Q6HRS PRN PO MODERATE PAIN; Start 06/13/18 at 12:30 Lorazepam (Ativan) 2 mg PRN Q4HRS PRN IV ANXIETY / AGITATION Last administered on 06/14/18at 08:18; Start 06/13/18 at 12:30 Zolpidem Tartrate (Ambien) 5 mg PRN QHS PRN PO INSOMNIA; Start 06/13/18 at 12: 30 Albuterol Sulfate (Ventolin Hfa) 1 puff BID IH ; Start 06/13/18 at 21:00; Status UNV Cyclobenzaprine HCl (Flexeril) 10 mg TID PO Last administered on 06/14/18at 08: 18; Start 06/13/18 at 14:00 Chlorphenir/ Hydrocodone Polistirex (Tussionex) 5 ml BID PO ; Start 06/13/18 at 21:00; Status UNV Oxycodone/ Acetaminophen (Percocet 10/325) 1 tab PRN QID PRN PO SEVERE PAIN Last administered on 06/14/18at 08:37; Start 06/13/18 at 12:45 Non-Formulary Medication (Albuterol Sulfate (Proair Respiclick)) 1 puff PRN Q6HRS PRN IH SHORTNESS OF BREATH; Start 06/13/18 at 12:45; Status UNV Lidocaine (Lidoderm) 1 patch PRN DAILY PRN TD back pain; Start 06/13/18 at 12: 45 Nicotine (Nicoderm Cq 21mg) 1 patch PRN DAILY PRN TD SMOKING CESSATION Last administered on 06/14/18at 08:36; Start 06/13/18 at 12:45 Albuterol Sulfate (Ventolin Neb Soln) 2.5 mg BID NEB Last administered on at 19:59; Start 06/13/18 at 21:00 Albuterol Sulfate (Ventolin Neb Soln) 2.5 mg PRN Q6HRS PRN NEB SHORTNESS OF BREATH; Start 06/13/18 at 13:00 Guaifenesin (Robitussin) 200 mg PRN Q6HRS PRN PO COUGH; Start 06/13/18 at 14:00 Haloperidol (Haldol) 5 mg PRN Q6HRS PRN PO AGITATION Last administered on at 23:27; Start 06/13/18 at 15:45 Active Scripts Active Amoxicillin 500 Mg Capsule 1 Cap PO QID Tussionex Pennkinetic Susp (Hydrocodone/Chlorphen Polis) 480 Ml Judit.er.12h 5 Ml PO BID Proair Respiclick (Albuterol Sulfate) 90 Mcg Aer.pow.ba 1 Puff IH PRN Q6HRS PRN Prednisone 50 Mg Tablet 1 Tab PO DAILY Cyclobenzaprine Hcl 10 Mg Tablet 1 Tab PO TID Reported Albuterol Sulfate Hfa Inhaler (Albuterol Sulfate) 8.5 Gm Hfa.aer.ad 8.5 Gm IH Cyclobenzaprine Hcl 10 Mg Tablet 10 Mg PO Oxycodone-Acetaminophen 10-325 (Oxycodone Hcl/Acetaminophen) 1 Each Tablet 1 Each PO Lisinopril-Hctz 20-12.5 Mg Tab (Lisinopril/Hydrochlorothiazide) 1 Each Tablet 1 Each PO Vitals/I & O Vital Sign - Last 24 Hours 06/13/18 06/13/18 06/13/18 06/13/18 12:16 14:57 15:00 19:44 Temp 97.7 97.9 98.1 97.7 97.9 98.1 Pulse 72 69 73 Resp 20 28 22 B/P (MAP) 119/71 (87) 159/58 (91) 128/47 (74) Pulse Ox 95 98 96 O2 Delivery Room Air Room Air Room Air Room Air 06/13/18 06/13/18 06/13/18 06/13/18 19:59 21:25 22:25 23:05 Temp 98.1 98.1 Pulse 85 Resp 22 B/P (MAP) 172/77 (108) Pulse Ox 96 98 O2 Delivery Room Air Room Air Room Air Room Air 06/14/18 06/14/18 06/14/18 03:13 07:00 08:37 Temp 98.1 97.7 98.1 97.7 Pulse 98 92 Resp 22 20 B/P (MAP) 189/99 (129) 135/71 (92) Pulse Ox 97 95 95 O2 Delivery Room Air Room Air Intake and Output 06/13/18 06/13/18 06/14/18 15:00 23:00 07:00 Intake Total 1600 ml 600 ml Output Total 600 ml 5 ml Balance 1000 ml 595 ml MERCY KEATING MD Jun 14, 2018 11:01
[2018-06-14 11:14] VITALS: BP 189/90
[2018-06-14] MEDS: ALBUTEROL SULFATE 2.5 MG/3 ML NEBU. NEB SCH ×2 (11:28→20:04)
[2018-06-14] MEDS: HALOPERIDOL 5 MG TABLET. PO PRN (13:15)
[2018-06-14] MEDS: LACTOBACILLUS RHAMNOSUS GG 1 CAPSULE. PO SCH ×2 (13:15→20:27)
[2018-06-14] MEDS: AMOXICILLIN/K CLAV 875/125MG TABLET. PO SCH ×2 (13:16→20:27)
[2018-06-14] MEDS ORDERED: HALOPERIDOL LACTATE 5 MG/ML VIAL. IM PRN (15:15)
[2018-06-14 15:33] VITALS: BP 179/94
[2018-06-14] MEDS: ZOLPIDEM 5 MG TABLET. PO PRN (22:39)
[2018-06-15] MEDS: oxyCODONE/APAP 10/325 1 TAB TABLET PO PRN ×2 (03:12→15:54)
[2018-06-15] MEDS: ALBUTEROL SULFATE 2.5 MG/3 ML NEBU. NEB SCH ×2 (06:09→20:23)
[2018-06-15 06:14] LABS: HEMATOCRIT 46.9 % (39.0-53.0); HEMOGLOBIN 15.9 g/dL (13.0-17.5); RED BLOOD COUNT 5.72 x10^6/uL (4.30-5.70); RED CELL DISTRIBUTION WIDTH 17.9 % (11.5-14.5); WHITE BLOOD COUNT 16.2 x10^3/uL (4.0-11.0)
[2018-06-15 06:19] LABS: ALBUMIN 3.5 g/dL (3.4-5.0); ALBUMIN/GLOBULIN RATIO 0.6 (1.0-1.7); CALCIUM 9.5 mg/dL (8.5-10.1); CREATININE 1.1 mg/dL (0.7-1.3); GFR 82.1; POTASSIUM 4.2 mmol/L (3.5-5.1); TOTAL BILIRUBIN 1.1 mg/dL (0.2-1.0)
[2018-06-15 07:00] VITALS: BP 187/84
[2018-06-15] MEDS: NICOTINE 21MG PATCH. TD PRN (08:17)
[2018-06-15] MEDS: CYCLOBENZAPRINE 10 MG TABLET. PO SCH ×3 (08:18→20:41)
[2018-06-15] MEDS: HALOPERIDOL 5 MG TABLET. PO PRN ×2 (08:18→19:30)
[2018-06-15] MEDS: ACETAMINOPHEN/CODEINE 300/30MG TABLET. PO PRN ×2 (08:18→19:30)
[2018-06-15] MEDS: AMOXICILLIN/K CLAV 875/125MG TABLET. PO SCH ×2 (08:18→20:41)
[2018-06-15] MEDS: LACTOBACILLUS RHAMNOSUS GG 1 CAPSULE. PO SCH ×2 (08:18→20:41)
--- NOTE | 2018-06-15 11:11 | PDOC ---
PROGRESS NOTES Chief Complaint Chief Complaint admitted with Abdominal pain likely due to withdrawal had tempreture today and WBC is up, he is on Augmentin since yesterday due to sinusistis on CT but spiked temp today ,WBC up and LFT's is up cultures done , hepatitis and liver sono History of Present Illness History of Present Illness ABD pain, emesis, likely narcotic withdrawal Chronic narcotic dependence/opiate tolerance secondary to chronic lumbago Nonsustained V. tach at the emergency room-15-20 beats Elevated anion gap, hypercalcemia secondary to dehydration fever and high LFT's also WBC up today 06/15/18 BC done as well as hepatitis and liver sono sinusitis on Augmentin Plan: agree with aggressive hydration, okay with IV fentanyl or morphine Resume some Percocet doses Seizure precaution in case because of narcotic withdrawal Echocardiogram per cardiology Hydrate and recheck anion gap and calcium tomorrow Supportive meds Augmentin for sinusitison CT cultures and hepatitis panel, CXR and liver sono ordered due to elevation in WBC and LFT's PT Vitals Vitals Vital Signs Date Time Temp Pulse Resp B/P (MAP) Pulse Ox O2 Delivery O2 Flow Rate FiO2 06/15/18 10:43 97 Room Air 06/15/18 07:00 99.7 95 22 187/84 (118) 99.7 Physical Exam General: Alert, Cooperative, No acute distress, Other (looks weak, bucket at bedside) Heart: Regular rate, Normal S1, Normal S2, Other (3/6 systolic murmur to LLS border) Abdomen: Normal bowel sounds, Soft, No tenderness, No hepatosplenomegaly, No masses Extremities: No clubbing, No cyanosis, No edema, Normal pulses, No tenderness/ swelling Skin: No rashes, No breakdown, No significant lesion Labs LABS Laboratory Tests Test 06/14/18 20:30 06/15/18 04:00 Magnesium Level 1.9 mg/dL (1.8-2.4) White Blood Count 16.2 x10^3/uL (4.0-11.0) Red Blood Count 5.72 x10^6/uL (4.30-5.70) Hemoglobin 15.9 g/dL (13.0-17.5) Hematocrit 46.9 % (39.0-53.0) Mean Corpuscular Volume 82 fL (79-100) Mean Corpuscular Hemoglobin 28 pg (25-35) Mean Corpuscular Hemoglobin Concent 34 g/dL (31-37) Red Cell Distribution Width 17.9 % (11.5-14.5) Platelet Count 390 x10^3/uL (140-400) Erythrocyte Sedimentation Rate 25 (0-15) Sodium Level 137 mmol/L (136-145) Potassium Level 4.2 mmol/L (3.5-5.1) Chloride Level 100 mmol/L (98-107) Carbon Dioxide Level 21 mmol/L (21-32) Anion Gap 16 (6-14) Blood Urea Nitrogen 23 mg/dL (8-26) Creatinine 1.1 mg/dL (0.7-1.3) Estimated GFR (Cockcroft-Gault) 82.1 BUN/Creatinine Ratio 21 (6-20) Glucose Level 78 mg/dL (70-99) Calcium Level 9.5 mg/dL (8.5-10.1) Total Bilirubin 1.1 mg/dL (0.2-1.0) Aspartate Amino Transf (AST/SGOT) 58 U/L (15-37) Alanine Aminotransferase (ALT/SGPT) 45 U/L (16-63) Alkaline Phosphatase 142 U/L (46-116) Total Protein 9.0 g/dL (6.4-8.2) Albumin 3.5 g/dL (3.4-5.0) Albumin/Globulin Ratio 0.6 (1.0-1.7) Lipase 188 U/L (73-393) Assessment and Plan Assessmemt and Plan Problems Medical Problems: (1) Acute narcotic withdrawal with delirium Status: Acute (2) Non-sustained ventricular tachycardia Status: Acute Comment Review of Relevant I have reviewed the following items makayla (where applicable) has been applied. Labs Laboratory Tests Test 06/13/18 14:50 06/13/18 15:08 06/14/18 20:30 06/15/18 04:00 Clostridium difficile Toxin (PCR) Negative (Negative) Urine Collection Type Unknown Urine Color Yellow Urine Clarity Clear Urine pH 6.5 Urine Specific [place] 1.020 Urine Protein >=300 mg/dL (NEG-TRACE) Urine Glucose (UA) Negative mg/dL (NEG) Urine Ketones (Stick) Negative mg/dL (NEG) Urine Blood Large (NEG) Urine Nitrite Negative (NEG) Urine Bilirubin Negative (NEG) Urine Urobilinogen Dipstick 0.2 mg/dL (0.2 mg/dL) Urine Leukocyte Esterase Negative (NEG) Urine RBC 6-10 /HPF (0-2) Urine WBC 0 /HPF (0-4) Urine Bacteria 0 /HPF (0-FEW) Urine Opiates Screen Pos (NEG) Urine Methadone Screen Neg (NEG) Urine Barbiturates Neg (NEG) Urine Phencyclidine Screen Neg (NEG) Urine Amphetamine/Methamphetamine Neg (NEG) Urine Benzodiazepines Screen Neg (NEG) Urine Cocaine Screen Pos (NEG) Urine Cannabinoids Screen Pos (NEG) Urine Ethyl Alcohol Neg (NEG) Magnesium Level 1.9 mg/dL (1.8-2.4) White Blood Count 16.2 x10^3/uL (4.0-11.0) Red Blood Count 5.72 x10^6/uL (4.30-5.70) Hemoglobin 15.9 g/dL (13.0-17.5) Hematocrit 46.9 % (39.0-53.0) Mean Corpuscular Volume 82 fL (79-100) Mean Corpuscular Hemoglobin 28 pg (25-35) Mean Corpuscular Hemoglobin Concent 34 g/dL (31-37) Red Cell Distribution Width 17.9 % (11.5-14.5) Platelet Count 390 x10^3/uL (140-400) Erythrocyte Sedimentation Rate 25 (0-15) Sodium Level 137 mmol/L (136-145) Potassium Level 4.2 mmol/L (3.5-5.1) Chloride Level 100 mmol/L (98-107) Carbon Dioxide Level 21 mmol/L (21-32) Anion Gap 16 (6-14) Blood Urea Nitrogen 23 mg/dL (8-26) Creatinine 1.1 mg/dL (0.7-1.3) Estimated GFR (Cockcroft-Gault) 82.1 BUN/Creatinine Ratio 21 (6-20) Glucose Level 78 mg/dL (70-99) Calcium Level 9.5 mg/dL (8.5-10.1) Total Bilirubin 1.1 mg/dL (0.2-1.0) Aspartate Amino Transf (AST/SGOT) 58 U/L (15-37) Alanine Aminotransferase (ALT/SGPT) 45 U/L (16-63) Alkaline Phosphatase 142 U/L (46-116) Total Protein 9.0 g/dL (6.4-8.2) Albumin 3.5 g/dL (3.4-5.0) Albumin/Globulin Ratio 0.6 (1.0-1.7) Lipase 188 U/L (73-393) Laboratory Tests Test 06/14/18 20:30 06/15/18 04:00 Magnesium Level 1.9 mg/dL (1.8-2.4) White Blood Count 16.2 x10^3/uL (4.0-11.0) Red Blood Count 5.72 x10^6/uL (4.30-5.70) Hemoglobin 15.9 g/dL (13.0-17.5) Hematocrit 46.9 % (39.0-53.0) Mean Corpuscular Volume 82 fL (79-100) Mean Corpuscular Hemoglobin 28 pg (25-35) Mean Corpuscular Hemoglobin Concent 34 g/dL (31-37) Red Cell Distribution Width 17.9 % (11.5-14.5) Platelet Count 390 x10^3/uL (140-400) Erythrocyte Sedimentation Rate 25 (0-15) Sodium Level 137 mmol/L (136-145) Potassium Level 4.2 mmol/L (3.5-5.1) Chloride Level 100 mmol/L (98-107) Carbon Dioxide Level 21 mmol/L (21-32) Anion Gap 16 (6-14) Blood Urea Nitrogen 23 mg/dL (8-26) Creatinine 1.1 mg/dL (0.7-1.3) Estimated GFR (Cockcroft-Gault) 82.1 BUN/Creatinine Ratio 21 (6-20) Glucose Level 78 mg/dL (70-99) Calcium Level 9.5 mg/dL (8.5-10.1) Total Bilirubin 1.1 mg/dL (0.2-1.0) Aspartate Amino Transf (AST/SGOT) 58 U/L (15-37) Alanine Aminotransferase (ALT/SGPT) 45 U/L (16-63) Alkaline Phosphatase 142 U/L (46-116) Total Protein 9.0 g/dL (6.4-8.2) Albumin 3.5 g/dL (3.4-5.0) Albumin/Globulin Ratio 0.6 (1.0-1.7) Lipase 188 U/L (73-393) Medications Current Medications Sodium Chloride 1,000 ml @ 1,000 mls/hr 1X ONCE IV Last administered on at 09:51; Start 06/13/18 at 09:30; Stop 06/13/18 at 10:29; Status DC Ondansetron HCl (Zofran) 4 mg 1X ONCE IV Last administered on 06/13/18at 09:51 ; Start 06/13/18 at 09:30; Stop 06/13/18 at 09:31; Status DC Haloperidol Lactate (Haldol Inj) 1.25 mg 1X ONCE IVP Last administered on 06/13at 09:52; Start 06/13/18 at 09:30; Stop 06/13/18 at 09:31; Status DC Clonidine HCl (Catapres Tts-1) 1 patch 1X ONCE TD Last administered on at 09:52; Start 06/13/18 at 09:00; Stop 06/13/18 at 09:23; Status DC Fentanyl Citrate (Fentanyl 2ml Vial) 50 mcg 1X ONCE IV Last administered on at 10:26; Start 06/13/18 at 10:15; Stop 06/13/18 at 10:16; Status DC Ondansetron HCl (Zofran) 4 mg 1X ONCE IV Last administered on 06/13/18at 10:26 ; Start 06/13/18 at 10:15; Stop 06/13/18 at 10:16; Status DC Ondansetron HCl (Zofran) 4 mg PRN Q8HRS PRN IV NAUSEA/VOMITING; Start 06/13/18 at 11:00; Stop 06/13/18 at 12:32; Status DC Morphine Sulfate (Morphine Sulfate) 2 mg PRN Q4HRS PRN IV MODERATE PAIN Last administered on 06/13/18at 17:47; Start 06/13/18 at 11:00 Sodium Chloride 1,000 ml @ 125 mls/hr Q8H IV ; Start 06/13/18 at 10:51; Stop at 10:50; Status DC Enalaprilat (Vasotec Inj) 1.25 mg PRN Q6HRS PRN IVP ELEVATED BP, SEE COMMENTS; Start 06/13/18 at 12:00 Sodium Chloride 1,000 ml @ 75 mls/hr 1X ONCE IV Last administered on at 12:00; Start 06/13/18 at 12:00; Stop 06/14/18 at 01:19; Status DC Ondansetron HCl (Zofran) 4 mg PRN Q6HRS PRN IV NAUSEA/VOMITING; Start 06/13/18 at 12:45 Acetaminophen (Tylenol) 500 mg PRN Q6HRS PRN PO MILD PAIN / TEMP; Start at 12:30 Acetaminophen/ Codeine Phosphate (Tylenol #3) 1 tab PRN Q6HRS PRN PO MODERATE PAIN Last administered on 06/15/18at 08:18; Start 06/13/18 at 12:30 Lorazepam (Ativan) 2 mg PRN Q4HRS PRN IV ANXIETY / AGITATION Last administered on 06/14/18at 08:18; Start 06/13/18 at 12:30 Zolpidem Tartrate (Ambien) 5 mg PRN QHS PRN PO INSOMNIA Last administered on at 22:39; Start 06/13/18 at 12:30 Albuterol Sulfate (Ventolin Hfa) 1 puff BID IH ; Start 06/13/18 at 21:00; Status UNV Cyclobenzaprine HCl (Flexeril) 10 mg TID PO Last administered on 06/15/18at 08: 18; Start 06/13/18 at 14:00 Chlorphenir/ Hydrocodone Polistirex (Tussionex) 5 ml BID PO ; Start 06/13/18 at 21:00; Status UNV Oxycodone/ Acetaminophen (Percocet 10/325) 1 tab PRN QID PRN PO SEVERE PAIN Last administered on 06/15/18at 03:12; Start 06/13/18 at 12:45 Non-Formulary Medication (Albuterol Sulfate (Proair Respiclick)) 1 puff PRN Q6HRS PRN IH SHORTNESS OF BREATH; Start 06/13/18 at 12:45; Status UNV Lidocaine (Lidoderm) 1 patch PRN DAILY PRN TD back pain; Start 06/13/18 at 12: 45 Nicotine (Nicoderm Cq 21mg) 1 patch PRN DAILY PRN TD SMOKING CESSATION Last administered on 06/15/18 08:17; Start 06/13/18 at 12:45 Albuterol Sulfate (Ventolin Neb Soln) 2.5 mg BID NEB Last administered on at 06:09; Start 06/13/18 at 21:00 Albuterol Sulfate (Ventolin Neb Soln) 2.5 mg PRN Q6HRS PRN NEB SHORTNESS OF BREATH; Start 06/13/18 at 13:00 Guaifenesin (Robitussin) 200 mg PRN Q6HRS PRN PO COUGH; Start 06/13/18 at 14:00 Haloperidol (Haldol) 5 mg PRN Q6HRS PRN PO AGITATION Last administered on at 08:18; Start 06/13/18 at 15:45 Amoxicillin/ Clavulanate Potassium (Augmentin 875/ 125mg) 1 tab BID PO Last administered on 06/15/18at 08:18; Start 06/14/18 at 13:30 Lactobacillus Rhamnosus (Culturelle) 1 cap BID PO Last administered on at 08:18; Start 06/14/18 at 13:30 Haloperidol Lactate (Haldol Inj) 2 mg PRN Q4HRS PRN IM AGITATION 2ND CHOICE Last administered on 06/14/18at 20:28; Start 06/14/18 at 15:15 Lorazepam (Ativan) 1 mg PRN Q4HRS PRN IM ANXIETY / AGITATION 1ST CHOICE Last administered on 06/15/18at 04:40; Start 06/14/18 at 15:15 Active Scripts Active Amoxicillin 500 Mg Capsule 1 Cap PO QID Tussionex Pennkinetic Susp (Hydrocodone/Chlorphen Polis) 480 Ml Judit.er.12h 5 Ml PO BID Proair Respiclick (Albuterol Sulfate) 90 Mcg Aer.pow.ba 1 Puff IH PRN Q6HRS PRN Prednisone 50 Mg Tablet 1 Tab PO DAILY Cyclobenzaprine Hcl 10 Mg Tablet 1 Tab PO TID Reported Albuterol Sulfate Hfa Inhaler (Albuterol Sulfate) 8.5 Gm Hfa.aer.ad 8.5 Gm IH Cyclobenzaprine Hcl 10 Mg Tablet 10 Mg PO Oxycodone-Acetaminophen 10-325 (Oxycodone Hcl/Acetaminophen) 1 Each Tablet 1 Each PO Lisinopril-Hctz 20-12.5 Mg Tab (Lisinopril/Hydrochlorothiazide) 1 Each Tablet 1 Each PO Vitals/I & O Vital Sign - Last 24 Hours 06/14/18 06/14/18 06/14/18 06/14/18 11:14 11:28 11:55 15:11 Temp 97.7 97.7 Pulse 94 Resp B/P (MAP) 189/90 (123) Pulse Ox 98 98 98 O2 Delivery Room Air Room Air Room Air 06/14/18 06/14/18 06/14/18 06/14/18 15:33 19:00 20:00 20:08 Temp 98.1 97.8 98.1 97.8 Pulse 102 105 Resp 22 B/P (MAP) 179/94 (122) Pulse Ox 98 98 98 O2 Delivery Room Air Room Air Room Air Room Air 06/14/18 06/14/18 06/15/18 06/15/18 22:39 23:00 03:00 03:12 Temp 98.0 98.0 Pulse 106 Resp 22 22 Pulse Ox 99 O2 Delivery Room Air Room Air Room Air Room Air 06/15/18 06/15/18 06/15/18 06/15/18 04:12 06:09 07:00 08:00 Temp 99.7 99.7 Pulse 95 Resp 22 B/P (MAP) 187/84 (118) Pulse Ox 97 O2 Delivery Room Air Room Air Room Air Room Air 06/15/18 06/15/18 08:18 10:43 Pulse Ox 97 97 O2 Delivery Room Air Room Air Intake and Output 06/14/18 06/14/18 06/15/18 15:00 23:00 07:00 Intake Total 640 ml 520 ml 600 ml Output Total 200 ml 600 ml 400 ml Balance 440 ml -80 ml 200 ml MERCY KEATING MD Jun 15, 2018 11:11
[2018-06-15 15:58] VITALS: BP 219/101
[2018-06-15 16:19] VITALS: BP 186/94
[2018-06-15] MEDS: LABETALOL HCL 100 MG TABLET. PO SCH ×2 (17:21→23:00)
[2018-06-15 19:10] VITALS: BP 169/85
[2018-06-15] MEDS: ZOLPIDEM 5 MG TABLET. PO PRN (20:41)
[2018-06-15 23:10] VITALS: BP 137/77
[2018-06-16] MEDS: HALOPERIDOL 5 MG TABLET. PO PRN ×2 (01:13→11:23)
[2018-06-16] MEDS: oxyCODONE/APAP 10/325 1 TAB TABLET PO PRN ×2 (01:14→11:23)
[2018-06-16 03:10] VITALS: BP 151/87
[2018-06-16 04:38] LABS: BASO # 0.1 x10^3/uL (0.0-0.2); BASO % 1 % (0-3); EOS # 0.5 x10^3/uL (0.0-0.7); EOS % 4 % (0-3); HEMATOCRIT 42.8 % (39.0-53.0); HEMOGLOBIN 14.4 g/dL (13.0-17.5); LYMPH # 2.6 x10^3/uL (1.0-4.8); LYMPH % 23 % (24-48); MEAN CORPUSCULAR HEMOGLOBIN 27 pg (25-35); MEAN CORPUSCULAR HGB CONC 34 g/dL (31-37); MEAN CORPUSCULAR VOLUME 81 fL (79-100); MONO % 9 % (0-9); NEUT # 6.9 x10^3uL (1.8-7.7); NEUT % 62 % (31-73); PLATELET COUNT 302 x10^3/uL (140-400); RED BLOOD COUNT 5.31 x10^6/uL (4.30-5.70); RED CELL DISTRIBUTION WIDTH 17.6 % (11.5-14.5); WHITE BLOOD COUNT 11.1 x10^3/uL (4.0-11.0)
[2018-06-16 04:57] LABS: ALBUMIN 2.8 g/dL (3.4-5.0); ALBUMIN/GLOBULIN RATIO 0.6 (1.0-1.7); CALCIUM 8.8 mg/dL (8.5-10.1); GFR 91.6; POTASSIUM 3.6 mmol/L (3.5-5.1); TOTAL BILIRUBIN 0.7 mg/dL (0.2-1.0); TOTAL PROTEIN 7.6 g/dL (6.4-8.2)
[2018-06-16 05:56] LABS: BILIRUBIN,URINE NEGATIVE (NEG); CLARITY,URINE CLEAR; COLOR,URINE AMBER; NITRITE,URINE NEGATIVE (NEG); PROTEIN,URINE >=300 mg/dL (NEG-TRACE); UROBILINOGEN,URINE 0.2 mg/dL (0.2 mg/dL)
[2018-06-16 06:26] LABS: SQUAMOUS EPITHELIAL CELL,UR FEW /LPF
[2018-06-16 06:27] LABS: BACTERIA,URINE FEW /HPF (0-FEW)
[2018-06-16 07:00] VITALS: BP 149/79
[2018-06-16] MEDS ORDERED: PANTOPRAZOLE 40 MG TABLET.DR. PO SCH (07:30)
[2018-06-16] MEDS ORDERED: CALCIUM CARBONATE 500 MG TAB.CHEW PO PRN (07:30)
[2018-06-16] MEDS: ACETAMINOPHEN/CODEINE 300/30MG TABLET. PO PRN (07:32)
[2018-06-16] MEDS: ALBUTEROL SULFATE 2.5 MG/3 ML NEBU. NEB SCH (07:45)
--- NOTE | 2018-06-16 07:50 | RAD ---
Chest, 2 views, 06/15/2018: HISTORY: Fever, high white blood cell count Comparison is made to a study from 12/16/2017. The heart size and pulmonary vascularity are normal. No pulmonary infiltrate is seen. There is no evidence of pleural fluid. Moderate hypertrophic spurring is present in the spine. A surgical screw is projected over the right glenoid fossa region. IMPRESSION: No acute cardiopulmonary abnormality is detected. Electronically signed by: Blayne Velasco MD (06/16/2018 7:46 AM) [facility]
--- NOTE | 2018-06-16 08:16 | RAD ---
Right upper quadrant abdominal ultrasound, 06/15/2018: HISTORY: Elevated liver function tests The gallbladder is not optimally distended. There is no sonographic evidence of cholelithiasis. The common hepatic duct is of normal caliber. No hepatic mass or bile duct dilatation is evident. The pancreas and central retroperitoneum were obscured by overlying bowel. Limited views of the right kidney are unremarkable. IMPRESSION: No significant gallbladder abnormality is detected. Electronically signed by: Blayne Velasco MD (06/16/2018 8:12 AM) [facility]
[2018-06-16] MEDS: AMOXICILLIN/K CLAV 875/125MG TABLET. PO SCH (09:27)
[2018-06-16] MEDS: CYCLOBENZAPRINE 10 MG TABLET. PO SCH ×2 (09:28→14:02)
[2018-06-16] MEDS: LABETALOL HCL 100 MG TABLET. PO SCH (09:28)
[2018-06-16] MEDS: LACTOBACILLUS RHAMNOSUS GG 1 CAPSULE. PO SCH (09:28)
[2018-06-16 11:00] VITALS: BP 145/71
[2018-06-16] MEDS ORDERED: LABE100T5 PO (13:55)
[2018-06-16] MEDS ORDERED: Nicotine 21MG TD (13:55)
[2018-06-16] MEDS ORDERED: OXYC-411 PO (13:55)
[2018-06-16] MEDS ORDERED: LIDO700A39 TD (13:55)
[2018-06-16] MEDS ORDERED: AMOX1TAB11 PO (14:00)
== END 2018-06-16 15:10 | disposition home or self-care (01) | DRG 896 ==
LOC: ER 09:09 → 6 SOUTH 10:22
PROVIDERS: ADMIT Internal Medicine; ATTEND Internal Medicine
DX: F11.23 Opioid dependence with withdrawal (principal); G92 Toxic encephalopathy; I47.2 Ventricular tachycardia; E87.2 Acidosis; E83.52 Hypercalcemia; E86.0 Dehydration; F12.90 Cannabis use, unspecified, uncomplicated; F17.210 Nicotine dependence, cigarettes, uncomplicated; G89.29 Other chronic pain; I10 Essential (primary) hypertension; M19.90 Unspecified osteoarthritis, unspecified site; J44.9 Chronic obstructive pulmonary disease, unspecified; I95.9 Hypotension, unspecified; M54.5 Low back pain; Z91.041 Radiographic dye allergy status
CPT/HCPCS: 36415; 70450; 71046; 76705; 80053; 80307; 81001; 82550; 83690; 83735; 84443; 84484; 85025; 85027; 85651; 87040; 87086; 87324; 93005; 93306; 94640; 94760; 96361; 96374; 96375; 96376; J1630; J2060; J2270; J2405; J3010; J7030; J7613; 99285-25; G0479

== ENCOUNTER 2019-02-11 13:05 | Emergency (ER) | payer MEDICARE, OTHER ==
[~2019-02-11] VITALS: Ht 177.8 cm; Wt 98.9 kg
[~2019-02-11 13:05] MED LIST changes: +AMOX1TAB11 PO; +LABE100T5 PO; +LIDO700A39 TD; +Nicotine 21MG TD; -cloNIDine TTS-1 1 PATCH PATCH.TDWK TD ONE
[2019-02-11 14:05] VITALS: BP 150/71
[2019-02-11] MEDS ORDERED: NAPROXEN 500 MG TABLET PO STA (14:42)
[2019-02-11] MEDS ORDERED: HYDROcodone/APAP 5/325MG 1 TAB TABLET PO ONE (14:45)
--- NOTE | 2019-02-11 15:12 | RAD ---
FOREARM LEFT, ELBOW LEFT 3V History: Left elbow and forearm pain after a fall.. Two-view left forearm There is fixation plate and screws as well as an interfragmentary screw at the mid ulnar shaft. There is some heterotopic bone around the ulna. There is mild cortical thickening and bone hypertrophy at the mid radial shaft. No acute fractures are seen. No evidence of aggressive bone destruction. 3 view left elbow There are moderate to severe degenerative changes about the elbow. Suggestion of a joint effusion with anterior displacement of anterior fat pad. On the radial head view there is a lucency at the base of the anterior radial head, suggesting a fracture and possibly acute. IMPRESSION: 1. Possible acute nondisplaced radial head fracture. CT scan of the elbow could further evaluate. 2. Chronic postsurgical/posttraumatic changes at the forearm. 3. 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 Electronically signed by: William Butt MD (02/11/2019 3:09 PM) [facility]
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
[2019-02-11] MEDS ORDERED: HYDR-3164 PO (15:51)
== END 2019-02-11 15:53 | disposition home or self-care (01) ==
LOC: ER 13:05
DX: S52.125A Nondisplaced fracture of head of left radius, initial encounter for closed fracture (principal); J44.9 Chronic obstructive pulmonary disease, unspecified; I10 Essential (primary) hypertension; M19.022 Primary osteoarthritis, left elbow; Z98.890 Other specified postprocedural states; Z91.041 Radiographic dye allergy status; W10.8XXA Fall (on) (from) other stairs and steps, initial encounter; Y93.89 Activity, other specified; Y92.89 Other specified places as the place of occurrence of the external cause; Y99.8 Other external cause status
CPT/HCPCS: 73080; 73090; 99284